=== PATIENT | male | born 1960 | race Caucasian/White ===

== ENCOUNTER 2017-04-09 09:42 | Emergency (ER) | payer OTHER ==
[~2017-04-09] VITALS: Ht 193 cm; Wt 108.0 kg
[2017-04-09 09:55] VITALS: BP 144/101
--- NOTE | 2017-04-09 10:05 | NUR ---
Patient ambulated to bed 7
--- NOTE | 2017-04-09 10:07 | NUR ---
DR. DHILLON AT BEDSIDE----PT C/O PAIN TO LOWER BACK/LEFT SIDE OF HIP/ LEFT WRIST PAIN MILD SWELLING/ ABRASIONS TO LUE AND PATTI KNEES S/P FALL FROM ROOF YESTERDAY-- DENIES KO, DENIES INJURY TO HEAD----NO OTHER INJURIES NOTED-- AMBULATORY WITH STEADY GAIT
[2017-04-09] MEDS ORDERED: CYCLOBENZAPRINE 10 MG TAB PO ONE (10:10)
--- NOTE | 2017-04-09 10:17 | NUR ---
PT TO X-RAY VIA WHEEL CHAIR
--- NOTE | 2017-04-09 10:38 | NUR ---
RETURNED FROM X-RAY VIA WHEEL CHAIR
--- NOTE | 2017-04-09 11:13 | NUR ---
CONTINUES TO WAIT FOR RADIOLOGY RESULTS---LAYING SEMI-ARIAS'S
--- NOTE | 2017-04-09 11:20 | NUR ---
Patient discharged with v/s stable. Written and verbal after care instructions given and explained. Patient alert, oriented and verbalized understanding of instructions. Ambulatory with steady gait. All questions addressed prior to discharge. ID band removed. Patient advised to follow up with PMD. Rx of FLEXERIL given. Patient educated on indication of medication including possible reaction and side effects. Opportunity to ask questions provided and answered.
[2017-04-09 11:34] VITALS: BP 137/84
== END 2017-04-09 11:20 | disposition home or self-care (01) ==
LOC: MED 09:42
DX: S73.102A Unspecified sprain of left hip, initial encounter (principal); S60.212A Contusion of left wrist, initial encounter; Z88.0 Allergy status to penicillin; Z88.6 Allergy status to analgesic agent; Z88.5 Allergy status to narcotic agent; W18.30XA Fall on same level, unspecified, initial encounter; Y93.89 Activity, other specified; Y92.89 Other specified places as the place of occurrence of the external cause; Y99.8 Other external cause status
CPT/HCPCS: 73100; 73502; 81002; 99284